=== PATIENT | male | born 1970 ===

== ENCOUNTER 2020-05-26 11:24 | Inpatient (IN) | payer SELFPAY ==
[~2020-05-26] VITALS: Ht 185.4 cm; Wt 79.3 kg
--- NOTE | 2020-05-26 12:14 | PHYS DOC ---
Past History Past Medical History: No Pertinent History Past Surgical History: No Surgical History Alcohol Use: None General Adult EDM: Chief Complaint: ALTERED MENTAL STATUS HPI: HPI: Patient is a 49-year-old male brought in by EMS after he was found with altered mental status during welfare check. It is unclear of who called for the welfare check but it is thinks it may have been family. Per EMS report they state that the patient's girlfriend 2 weeks ago because the address campus another EMS call. Details of her are unclear as EMS were working today were not there. Patient is completely disoriented able to state his birthday and the year, thinks he is in [place]. Patient states that his girlfriend is still there taking care of him. He has no complaints of pain or recent illness. Patient is unable to to give any history. No known baseline or previous records with patient. Review of Systems: Review of Systems: Unable to assess due to mental status Allergies: Allergies: Allergies Coded Allergies Type Severity Reaction Last Updated Verified No Known Drug Allergies 05/26/20 No Physical Exam: PE: Constitutional: Well developed, well nourished, no acute distress, disoriented, smells [] HENT: Normocephalic, atraumatic, bilateral external ears normal, oropharynx moist, no oral exudates, nose normal. [] Eyes: PERRLA, conjunctiva normal, no discharge. [] Neck: Normal range of motion, no tenderness, supple, no stridor. [] Cardiovascular:Heart rate regular rhythm, no murmur [] Lungs & Thorax: Bilateral breath sounds clear to auscultation [] Abdomen: Bowel sounds normal, soft, no tenderness, no masses, no pulsatile masses. [] Skin: Warm, dry, no erythema, no rash. [] Extremities: No tenderness, no cyanosis, no clubbing, ROM intact, no edema. [] Neurologic: Alert and oriented X 1, NIH 2 for ataxia on [id number], mild tremor noted feet Psychologic: Normal affect, denies suicidal ideation or hallucinations. Current Patient Data: Labs: Laboratory Tests Test 05/26/20 11:39 Glucose (Fingerstick) 159 mg/dL (70-99) H Vital Signs: Vital Signs Date Time Temp Pulse Resp B/P (MAP) Pulse Ox O2 Delivery O2 Flow Rate FiO2 05/26/20 11:32 97.5 105 16 124/87 (99) 99 Room Air EKG: EKG: [] Radiology/Procedures: Radiology/Procedures: Examination: XR CHEST 1V History: ams / Comparison/Correlation: None Findings: Frontal view chest was obtained by portable technique with the patient upright. Heart size and pulmonary vasculature are normal. No infiltrate or effusion. Minimal discoid atelectasis may be present at the left lung base. No infiltrate. Impression: No active disease. PROCEDURE: CT HEAD WO CONTRAST Examination: CT HEAD/BRAIN WO History: Reason: altered mental status Comparison/Correlation: None Findings: Axial images of the head were obtained without contrast. Atrophy is present. No intracranial hemorrhage, midline shift, or mass effect. Mild ventriculomegaly which presumably represents volume loss is present. Cavernous carotid calcification is present. Bony structures are unremarkable. Partial opacification of the right maxillary sinus is present. Lack of development of frontal sinus is incidentally noted. Impression: No acute process. PROCEDURE: CT ABD PELV W/ IV CONTRST ONLY Examination: CT ABDOMEN+PELVIS W History: sepsis, unknown source Comparison/Correlation: None Findings: Axial images of the abdomen and pelvis were obtained following IV contrast. Sagittal and coronal reformatted images provided. Minimal basilar atelectasis is present. Liver, spleen, pancreas, adrenal glands, and kidneys are normal. Appendix is normal. Large quantity of stool is present in the colon. Mild diverticulosis is present. No extraluminal gas. No extraluminal gas. No bowel obstruction. Multiple nonenlarged mesenteric lymph nodes are present. Borderline size portacaval lymph node on axial image 34 is present. Mild L4-5 disc space narrowing. Central disc protrusion L5-S1 noted. No acute bony process. Impression: Borderline sized portacaval lymph node. Nonenlarged mesenteric lymph nodes present. Correlate clinically in determining interval follow-up. [] Heart Score: Risk Factors: Risk Factors: DM, Current or recent (<one month) smoker, HTN, HLP, family hist ory of CAD, obesity. Risk Scores: Score 0 - 3: 2.5% MACE over next 6 weeks - Discharge Home Score 4 - 6: 20.3% MACE over next 6 weeks - Admit for Clinical Observation Score 7 - 10: 72.7% MACE over next 6 weeks - Early Invasive Strategies Course & Med Decision Making: Course & Med Decision Making Pertinent Labs and Imaging studies reviewed. (See chart for details) Patient's mother phoned the emergency department after being contacted by PD that her son was brought to the hospital. She is unsure of who called for a welfare check but says he has been heard from for a few days to her knowledge. Mother states that patient has been acting erratically since his girlfriend 2 weeks ago when he had to do CPR. States he has a history of diabetes and neuropathy [facility] [] Michael Disclaimer: Michael Disclaimer: This electronic medical record was generated, in whole or in part, using a voice recognition dictation system. Departure Departure: Impression: Primary Impression: Acute psychosis Additional Impression: Dehydration Disposition: 09 ADMITTED INPT THIS HOSP Admitting Physician: Angelic Gardner Condition: STABLE Referrals: PCP,UNKNOWN (PCP) CALDERON US MD May 26, 2020 12:14
[2020-05-26 12:22] LABS: BASO % 0 % (0-3); EOS % 0 % (0-3); HEMATOCRIT 25.9 % (39.0-53.0); HEMOGLOBIN 8.6 g/dL (13.0-17.5); LYMPH # 0.9 x10^3/uL (1.0-4.8); LYMPH % 12 % (24-48); MEAN CORPUSCULAR HEMOGLOBIN 36 pg (25-35); MEAN CORPUSCULAR HGB CONC 33 g/dL (31-37); MEAN CORPUSCULAR VOLUME 109 fL (79-100); MONO # 0.2 x10^3/uL (0.0-1.1); MONO % 2 % (0-9); NEUT # 6.5 x10^3uL (1.8-7.7); NEUT % 85 % (31-73); PLATELET COUNT 191 x10^3/uL (140-400); RED BLOOD COUNT 2.37 x10^6/uL (4.30-5.70); RED CELL DISTRIBUTION WIDTH 15.4 % (11.5-14.5); WHITE BLOOD COUNT 7.6 x10^3/uL (4.0-11.0)
--- NOTE | 2020-05-26 12:26 | RAD ---
Examination: CT HEAD/BRAIN WO History: Reason: altered mental status Comparison/Correlation: None Findings: Axial images of the head were obtained without contrast. Atrophy is present. No intracrania l hemorrhage, midline shift, or mass effect. Mild ventriculomegaly which presumably represents volume loss is present. Cavernous carotid calcification is present. Bony structures are unremarkable. Parti al opacification of the right maxillary sinus is present. Lack of development of frontal sinus is inc identally noted. Impression: No acute process. PQRS Compliance Statement: One or more of the following individualized dose reduction techniques were utilized for this examinat ion: 1. Automated exposure control 2. Adjustment of the mA and/or kV according to patient size 3. Use of iterative reconstruction technique Electronically signed by: Roberto Winkler MD (05/26/2020 12:24 PM) [id number]
--- NOTE | 2020-05-26 12:27 | RAD ---
Examination: XR CHEST 1V History: ams / Comparison/Correlation: None Findings: Frontal view chest was obtained by portable technique with the patient upright. Heart size and pulmonary vasculature are normal. No infiltrate or effusion. Minimal discoid atelectasis may be p resent at the left lung base. No infiltrate. Impression: No active disease. Electronically signed by: Roberto Winkler MD (05/26/2020 12:25 PM) [id number]
[2020-05-26 12:33] LABS: SALIC < 2.8 mg/dL (2.8-20.0)
[2020-05-26 12:34] LABS: ACETAMIN < 2.0 mcg/mL (10-30); CALCIUM 9.5 mg/dL (8.5-10.1); CREATININE 1.4 mg/dL (0.7-1.3); ETHANOL < 10 mg/dL (0-10); GFR 53.4; POTASSIUM 3.4 mmol/L (3.5-5.1)
[2020-05-26 12:44] LABS: ALBUMIN 3.2 g/dL (3.4-5.0); ALBUMIN/GLOBULIN RATIO 0.8 (1.0-1.7); TOTAL BILIRUBIN 0.8 mg/dL (0.2-1.0); TOTAL PROTEIN 7.1 g/dL (6.4-8.2)
[2020-05-26 12:58] LABS: BARBITURATES NEG (NEG); BENZODIAZEPINES NEG (NEG); CANNABINOIDS NEG (NEG); COCAINE NEG (NEG); METHADONE NEG (NEG); OPIATES NEG (NEG); PHENCYCLIDINE NEG (NEG)
[2020-05-26 13:00] LABS: AMPHETAMINE/METHAMPHETAMINE NEG (NEG)
[2020-05-26 13:03] LABS: BACTERIA,URINE FEW /HPF (0-FEW); BILIRUBIN,URINE MOD (NEG); CLARITY,URINE HAZY; COLOR,URINE AMBER; GLUCOSE,URINE NEG (NEG); NITRITE,URINE POS (NEG); RBC,URINE OCC /HPF (0-2); SQUAMOUS EPITHELIAL CELL,UR OCC /LPF
[2020-05-26 13:04] LABS: HYALINE CASTS, URINE OCC /HPF
[2020-05-26] MEDS ORDERED: IV NORMAL SALINE 1,000ML 1,000 ML IV ONE ×2 (13:15→15:15)
[2020-05-26] MEDS ORDERED: IOHEXOL 300 MG/ML 75 ML VIAL. IV ONE (14:00)
[2020-05-26] MEDS ORDERED: PIPERACILLIN/TAZOBACTAM 3.375 GM in IV NORMAL SALINE 50ML 50 ML IV ONE (14:30)
[2020-05-26] MEDS ORDERED: PIPERACILLIN/TAZOBACTAM 3.375 GM VIAL IV ONE (14:56)
[2020-05-26] MEDS ORDERED: IV NORMAL SALINE 50ML 50 ML ONE (14:56)
--- NOTE | 2020-05-26 15:13 | RAD ---
Examination: CT ABDOMEN+PELVIS W History: sepsis, unknown source Comparison/Correlation: None Findings: Axial images of the abdomen and pelvis were obtained following IV contrast. Sagittal and co aniyah reformatted images provided. Minimal basilar atelectasis is present. Liver, spleen, pancreas, adrenal glands, and kidneys are normal. Appendix is normal. Large quantity of stool is present in the colon. Mild diverticulosis is present. No extraluminal gas. No extraluminal gas. No bowel obstruction. Multiple nonenlarged mesenteric lymph nodes are present. Borderline size portacaval lymph node on axial image 34 is present. Mild L4-5 disc space narrowing. Central disc protrusion L5-S1 noted. No acute bony process. Impression: Borderline sized portacaval lymph node. Nonenlarged mesenteric lymph nodes present. Correlate clinica lly in determining interval follow-up. PQRS Compliance Statement: One or more of the following individualized dose reduction techniques were utilized for this examinat ion: 1. Automated exposure control 2. Adjustment of the mA and/or kV according to patient size 3. Use of iterative reconstruction technique Electronically signed by: Roberto Winkler MD (05/26/2020 3:11 PM) [id number]
[2020-05-26 17:35] VITALS: BP 124/89
[2020-05-26 19:47] VITALS: BP 113/77
[2020-05-26 22:37] VITALS: BP 101/68
[2020-05-27 04:17] VITALS: BP 122/75
--- NOTE | 2020-05-27 05:37 | RAD ---
PQRS Compliance Statement: One or more of the following individualized dose reduction techniques were utilized for this examinat ion: 1. Automated exposure control 2. Adjustment of the mA and/or kV according to patient size 3. Use of iterative reconstruction technique CT head without contrast 05/27/2020 4:39 AM INDICATION: Altered mental status, seizure-like activity. COMPARISON: CT head 05/26/2020 TECHNIQUE: Multiple axial CT images of the head were obtained from skull base through the vertex with out intravenous contrast. FINDINGS: Head: Ventricles, sulci and basal cisterns are prominent compatible with mild generalized cerebral line los s. There is no hydrocephalus. Olvera-white matter differentiation is normal. There is no acute intracra nial hemorrhage. There is no mass, mass effect or midline shift. Posterior fossa is normal in appeara nce. Visualized portions of the orbits are normal.. Moderate mucosal thickening of the right maxillary sin us. Mastoid air cells are well aerated. Scalp and calvaria are normal. IMPRESSION: No acute intracranial hemorrhage. Mild generalized cerebral volume loss. Electronically signed by: Florinda Dillon MD (05/27/2020 5:34 AM) [facility]
[2020-05-27 05:53] VITALS: BP 120/76
--- NOTE | 2020-05-27 06:14 | EKG ---
[address] [address] Test Date: 2020-05-27 Test Time: 06:03:32 Pat Name: MILENA NINO Department: Room: 111 A Gender: M [employer] Technology Manager: : 1970 Requested By: EDUARDO HARRISON Order Number: [id number] Reading MD: Measurements Intervals [place] Rate: 104 P: -49 ID: [id number] QRS: 166 QRSD: 88 T: 2 QT: 366 QTc: 488 Interpretive Statements SINUS TACHYCARDIA ABNORMAL RIGHT AXIS DEVIATION QRS(T) CONTOUR ABNORMALITY CONSISTENT WITH HIGH LATERAL INFARCT AGE UNDETERMINED CONSIDER INFERIOR INFARCT ST & T ABNORMALITY, CONSIDER LATERAL ISCHEMIA OR LEFT VENTRICULAR STRAIN T ABNORMALITY IN ANTERIOR LEADS ABNORMAL ECG RI6.01 No previous ECG available for comparison
[2020-05-27 07:00] LABS: BASO % 0 % (0-3); EOS % 0 % (0-3); HEMOGLOBIN 7.1 g/dL (13.0-17.5); LYMPH # 0.7 x10^3/uL (1.0-4.8); LYMPH % 14 % (24-48); MEAN CORPUSCULAR HEMOGLOBIN 37 pg (25-35); MEAN CORPUSCULAR HGB CONC 34 g/dL (31-37); MEAN CORPUSCULAR VOLUME 110 fL (79-100); MONO # 0.2 x10^3/uL (0.0-1.1); MONO % 3 % (0-9); NEUT # 4.3 x10^3uL (1.8-7.7); NEUT % 83 % (31-73); PLATELET COUNT 145 x10^3/uL (140-400); RED BLOOD COUNT 1.91 x10^6/uL (4.30-5.70); RED CELL DISTRIBUTION WIDTH 15.8 % (11.5-14.5); WHITE BLOOD COUNT 5.2 x10^3/uL (4.0-11.0)
[2020-05-27 07:08] LABS: ALBUMIN 2.6 g/dL (3.4-5.0); ALBUMIN/GLOBULIN RATIO 0.7 (1.0-1.7); CALCIUM 8.6 mg/dL (8.5-10.1); CREATININE 1.2 mg/dL (0.7-1.3); GFR 63.8; MAGNESIUM 2.3 mg/dL (1.8-2.4); TOTAL BILIRUBIN 0.5 mg/dL (0.2-1.0); TOTAL PROTEIN 6.3 g/dL (6.4-8.2)
[2020-05-27 07:11] LABS: POTASSIUM 2.8 mmol/L (3.5-5.1)
[2020-05-27] MEDS: POTASSIUM CL 40MEQ IN 0.9%NACL 1,000 ML IV SCH ×2 (07:30→15:30)
[2020-05-27] MEDS ORDERED: ALBU2.5V8 IH (08:56)
[2020-05-27] MEDS ORDERED: POTA20TA4 PO (08:56)
[2020-05-27] MEDS ORDERED: GABA600T7 PO (08:56)
[2020-05-27] MEDS ORDERED: DULO30CA2 PO (08:56)
[2020-05-27] MEDS ORDERED: LIDO5JEL8 TP (08:56)
[2020-05-27] MEDS ORDERED: FOLI20CA PO (08:56)
[2020-05-27] MEDS ORDERED: CAPS60CR2 TP (08:56)
[2020-05-27] MEDS ORDERED: METF500T16 PO (08:56)
[2020-05-27] MEDS ORDERED: BUDE10.2 IH (08:56)
[2020-05-27] MEDS ORDERED: SILD50TA PO (08:56)
[2020-05-27] MEDS ORDERED: TAMS0.4C97 PO (08:56)
[2020-05-27] MEDS ORDERED: CRESTOR5 MG PO (08:56)
[2020-05-27] MEDS ORDERED: ASPI-630 PO (08:56)
[2020-05-27] MEDS ORDERED: TIOT18CA IH (08:56)
[2020-05-27] MEDS ORDERED: CYAN100031 PO (08:56)
[2020-05-27] MEDS ORDERED: LOSA25TA11 PO (08:56)
[2020-05-27] MEDS ORDERED: THIA100T57 PO (08:56)
[2020-05-27 10:50] VITALS: BP 115/74
[2020-05-27] MEDS ORDERED: NON FORMULARY ITEM (Sildenafil Citrate (Viagra) 1 TAB) PO PRN (13:45)
[2020-05-27] MEDS ORDERED: CAPSAICIN 0.025% TOPICAL CREAM 60GM TUBE. TP PRN (13:45)
[2020-05-27] MEDS ORDERED: ALBUTEROL SULFATE 2.5 MG/3 ML NEBU. IH PRN (13:45)
--- NOTE | 2020-05-27 14:39 | HP ---
ADMIT DATE: 05/26/2020 HISTORY OF PRESENT ILLNESS: The patient is a 49-year-old male patient who came to the Emergency Room by EMS after he was found with altered mental status during welfare check. It is unclear of who called for the welfare check, but might have been a family member. Per EMS report, they stated that the patient's girlfriend 2 weeks ago ____ another EMS called, detailed her are unclear as EMS working were not there. The patient is completely disoriented. On arrival to the Emergency Room, was able to state his birthday and the year, thinks he is in [place]. He stated that his girlfriend is still there taking care of him. He has no complaints of pain or recent illness. He is unable to give any history on arrival. He was extensively investigated in the Emergency Room with lab work as well as imaging studies. His blood count showed that he has macrocytic anemia. His blood gases showed that he was alkalotic and his chemistry showed that he has hyponatremia, hypokalemia, impaired kidney function, hyperglycemia, lactic acidosis and elevated liver enzymes; however, his ammonia level was normal. His chest x-ray was unremarkable and CT scan of the head showed no acute process. The patient was admitted and was started on IV fluid and was given also IV antibiotic in the form of Zosyn and was admitted for further evaluation and treatment. We did get some information from the [facility] as he is a and follows at the [facility] and apparently moved here from [place] for alcohol rehabilitation, although he is not really sure as to the timing on arrival here. PAST MEDICAL HISTORY: Significant for Crohn's disease, type 2 diabetes mellitus, hypertension, hyperlipidemia, COPD, benign prostatic hypertrophy, and chronic alcoholism. PAST SURGICAL HISTORY: Significant for multiple EGDs and colonoscopies. ALLERGIES: HE IS ALLERGIC TO AMITRIPTYLINE, DIVALPROEX SODIUM, LISINOPRIL AND TOPIRAMATE. MEDICATIONS: He is on tiotropium bromide 1 capsule daily, albuterol sulfate 2 puffs every 4-6 hours, tamsulosin for Flomax 0.4 mg at bedtime, Crestor 2.5 mg weekly, sildenafil for Viagra 50 mg as needed. He is on losartan potassium 25 mg once a day, aspirin 81 mg once a day, gabapentin 400 mg 3 times a day, duloxetine 90 mg daily. He is on potassium chloride 20 mEq daily. He is on Symbicort 160/4.5 mcg inhaler 2 puffs twice a day, Lidoderm gel applied topically 4 times a day for nerve pain. He is on metformin 500 mg twice a day, capsaicin 60 mg cream applied topically 4 times a day, vitamin B12 1000 mcg tablet once a day, folic acid 1 mg once a day, and thiamine 100 mg once a day. FAMILY HISTORY: He has 3 sisters and 1 brother older and healthy. His father at the age of 74 as a complication of surgery for his carotid artery according to him, his mother is still alive at age of 89 and apparently healthy. SOCIAL HISTORY: He is twice, twice, used to live with his girlfriend who recently. He has no children. He quit smoking years ago. He drinks wine 3 times per week according to him. He does not drink any whiskey or vodka. He was in [place] in 1990. He was discharged because he was diagnosed with Crohn's disease according to him. REVIEW OF SYSTEMS: The patient denied any blurring of vision, cataract, glaucoma or macular degeneration. Denied any other complaint. PHYSICAL EXAMINATION: GENERAL: On arrival to the Emergency Room, he looked well and was clearly in no apparent respiratory distress. No pallor, jaundice, cyanosis or thyromegaly. No jugular venous distention. No limb edema. VITAL SIGNS: His heart rate was 105, blood pressure was 124/87, temperature was 97.5, respiratory rate was 16, and oxygen saturation was 99%. HEAD, EYES, EARS, NOSE AND THROAT: Showed normocephalic, atraumatic. NECK: Supple. HEART: Showed normal first and second heart sounds with no gallop, rub or murmur. CHEST: Clear to auscultation. No crepitation or rhonchi. ABDOMEN: Distended, soft, nontender. NEUROLOGICAL: He is awake, alert, but at times confused. In fact he was very confused on admission. All his cranial nerves are intact. EXTREMITIES: He moves upper extremities to much good extent than lower extremities. He is mostly wheelchair bound according to him. LABORATORY DATA: His lab work on arrival showed a serum sodium of 134, potassium 3.4, chloride 89, bicarbonate 28, anion gap of 17, BUN 49, creatinine 1.4, estimated GFR was 53 mL per minute. His glucose is 157. Lactic acid was 3.4, calcium was 9.5. Total bilirubin is normal. AST, ALT, alkaline phosphatase are elevated. Ammonia was normal, less than 10 mL. His CK was 102, total protein 7.1, albumin 3.2. His white cell count was 7600, hemoglobin 8.6, hematocrit 25.9, MCV 109 and platelet count of 191,000. His urinalysis showed the urine was morenita, hazy with a pH of 5, specific gravity of 1.025. The urine was negative for protein, glucose, trace of ketones, negative for blood, positive for nitrite and there was moderate amount of bilirubin, negative for leukocyte esterase with 1 occasional rbc's, 1-4 wbc's and very few bacteria. Urine toxic screen was essentially negative. IMAGING DATA: His chest x-ray showed the heart size and pulmonary vasculature are normal, no infiltrate or effusion, minimal discoid atelectasis may be present in the left lung base, no infiltrate. CT scan of the head showed that atrophy is present. No intracranial hemorrhage, midline shift or mass effect, mild ventriculomegaly, which presumably represents volume loss is present. Cavernous carotid calcification is present. Bony structures are unremarkable. Partial opacification of the right maxillary sinus is present, likely development of frontal sinus incidentally noted. ASSESSMENT AND PLAN: The patient was admitted as an inpatient to continue with rehydration as he is clearly dehydrated. She has also altered mental status, the cause of which is not really very clear. His mother apparently found the Emergency Department after being contacted by the police department that her son was brought to the hospital. She is unsure who called for a welfare checkup, but states she has not heard from him for a few days to her knowledge. Mother states that the patient has been acting erratically since his girlfriend 2 weeks ago when he had to do CPR. She states that he has history of diabetes and neuropathy and [facility] PLAN: To continue with IV fluid, continue with IV antibiotic as he has lactic acidosis, although he is transpired, but he is on metformin as a cause of his lactic acidosis. EDUARDO HARRISON MD DR: RUPAL/chance JOB#: [id number] / [id number]
[2020-05-27] MEDS ORDERED: LIDOCAINE 2% TOPICAL JELLY 30GM TUBE. TP PRN (15:00)
[2020-05-27 15:25] VITALS: BP 127/92
[2020-05-27] MEDS ORDERED: ALBUTEROL SULFATE 2.5 MG/3 ML NEBU. NEB PRN (15:30)
[2020-05-27] MEDS: IPRATRPIUM/ALBUTEROL 0.5/2.5MG 3 ML NEBU. NEB SCH ×2 (15:36→20:22)
[2020-05-27] MEDS: BUDESONIDE 0.5 MG/2 ML NEBU NEB SCH (20:22)
[2020-05-27 20:32] VITALS: BP 130/87
[2020-05-27] MEDS ORDERED: NON FORMULARY ITEM (Budesonide/Formoterol Fumarate (Symbicort 160-4.5 Mcg Inhaler) 2 PUFF) IH SCH (21:00)
[2020-05-27] MEDS: GABAPENTIN 400 MG CAPSULE. PO SCH (21:08)
[2020-05-28] VITALS (11 sets, daily range): BP systolic 92–133; BP diastolic 65–88
--- NOTE | 2020-05-28 00:04 | PN ---
DATE: 05/27/2020 SUBJECTIVE: The patient was admitted yesterday with acute psychosis and marked dehydration. He was extremely lethargic and confused. However, when I saw him today this afternoon, he was resting slightly propped up in bed, in no apparent distress. He is awake, alert, responding mostly appropriately. He was actually hungry and has managed to eat. However, he continued to complain of weakness and inability to walk. The nursing staff apparently were concerned that he might have an episode of seizure and we did repeat CT scan of the head, which again showed no acute intracranial hemorrhage, mild generalized cerebral volume loss. PHYSICAL EXAMINATION: GENERAL: When I examined him this afternoon, he looked well and was clearly in no apparent respiratory distress. No pallor, jaundice, cyanosis or thyromegaly. No jugular venous distention or limb edema. VITAL SIGNS: Her heart rate was 108, blood pressure was 115/74, temperature was 96.1, respiratory rate was 20, and oxygen saturation was 98% on room air. HEAD, EYES, EARS, NOSE AND THROAT: Showed normocephalic, atraumatic. NECK: Supple. HEART: Showed normal first and second heart sounds. No gallop or murmur. CHEST: Clear to auscultation. No crepitation or rhonchi. ABDOMEN: Distended, soft, nontender. NEUROLOGIC: He is definitely more awake, oriented, although he has episodes of confusion. All his cranial nerves are intact. He moves upper extremities as much to get extended extremities. According to him, he is mostly chair bound, unable to walk because of severe diabetic peripheral neuropathy. His intake was 2400, output was 450. LABORATORY DATA: His lab work this morning showed his white cell count is 5200, hemoglobin 7.1, hematocrit 21, MCV 110, platelet count of 145,000 with normal manual differential. His chemistry this morning showed a serum sodium of 138, potassium 2.8, chloride 98, bicarbonate 28, anion gap of 12, BUN 46, creatinine 1.2, estimated GFR was 64 mL per minute. His glucose of 141, calcium was 8.6, magnesium 2.3. Total bilirubin is normal. AST, ALT, alkaline phosphatase are elevated. His total protein was 6.3, albumin was 2.6. ASSESSMENT: In summary, this is a 49-year-old male patient who was admitted with altered mental status. He has acute kidney injury, dehydration, hypokalemia, hyponatremia, lactic acidosis, acute kidney injury and transaminitis. He has multitude of other medical problems including Crohn's disease, type 2 diabetes mellitus, hypertension, hyperlipidemia, COPD, benign prostatic hypertrophy. He had had a CT scan of the abdomen and pelvis, which basically showed the patient has minimal basilar atelectasis present. Liver, spleen, pancreas, adrenal glands and kidneys are normal. Appendix is normal. Large quantity of stool is present in the colon, mild diverticulosis present. No extraluminal gas or bowel obstruction. Multiple nonenlarged mesenteric lymph nodes are present. Borderline sized portacaval lymph node on axial image of 34 present. Has also mild L4-L5 disk space narrowing, central disk protrusion at L5-S1 noted. No acute bony process, borderline sized portacaval lymph nodes, nonenlarged mesenteric lymph nodes present. Today's labs showed that he has hypokalemia. His sodium has improved and his BUN and creatinine are trending down. PLAN: My plan is to continue with IV fluid. We will stop the metformin as probably the cause of type B lactic acidosis. I have consulted Dr. Robertson and I am not sure whether this finding on the CT scan of the abdomen is relevant to what seemed to be functional paraplegia, but he seemed to have severe diabetic peripheral neuropathy as he is on duloxetine, gabapentin as well as capsaicin. I would also consult the physical and occupational therapist. EDUARDO HARRISON MD DR: RUPAL/chance JOB#: [id number] / [id number]
[2020-05-28] MEDS: POTASSIUM CL 40MEQ IN 0.9%NACL 1,000 ML IV SCH ×3 (01:11→15:46)
--- NOTE | 2020-05-28 01:35 | CONS ---
DATE OF CONSULTATION: 05/27/2020 NEUROLOGY CONSULTATION REFERRING PHYSICIAN: Dr. Gardner. REASON FOR CONSULTATION: Acute mental status changes. HISTORY OF PRESENT ILLNESS: This is a 49-year-old right-handed male who was admitted through Emergency Room after he was found confused and disoriented. EMS was activated by possible family member. On arrival, the patient was able to mention his name; however, he was unable to provide any further information. Apparently, the patient's girlfriend 2 weeks ago of unknown reason and he did CPR on her; however, the patient was admitted for further evaluation of his mental status. Initial head CT scan was performed and revealed no significant intracranial process. During the interview this morning, the patient was not able to provide any information; however, occasionally he make some sentences and describes his previous medical problems as being diabetes and has had peripheral neuropathy in the lower extremities. He complains of intermittent lower back pain, numbness and paresthesia of the lower extremities. The patient does not know anything about his girlfriend. He was initially transferred from [place] to [facility] for alcohol rehabilitation. The patient denies any recent head injuries or fall. PAST MEDICAL HISTORY: Significant for diabetes mellitus type 2, hypertension, Crohn's disease, alcoholism, hyperlipidemia, COPD, and benign prostate hypertrophy. PAST SURGICAL HISTORY: The patient did have colonoscopy and EGD, but the result is not available at this time. FAMILY HISTORY: His father at age of 74 from carotid artery surgery complications. His mother is alive at the age of 89. SOCIAL HISTORY: The patient is . He has no children. He drinks wine 3 times weekly. He denies smoking. CURRENT MEDICATIONS: The list is not available at this time. ALLERGIES: AMITRIPTYLINE, DEPAKOTE, LISINOPRIL AND TOPIRAMATE. REVIEW OF SYSTEMS: A 14-point review of system was performed as mentioned above in history of present illness. Otherwise, the patient denies chest pain, shortness of breath or palpitation. PHYSICAL EXAMINATION: GENERAL: Well-developed, well-nourished male, not in acute distress. He weighs 79.3 kilos. VITAL SIGNS: Blood pressure 120/76, respiratory rate 20, pulse is 105, temperature 97.6, oxygen saturation 92% on room air. HEENT: Normocephalic, atraumatic, otherwise unremarkable. NECK: Supple. Negative for carotid bruit, lymphadenopathy or thyromegaly. LUNGS: Clear to A and P. CARDIOVASCULAR: Regular rate and rhythm. Normal S1, S2. There is no S3, S4 or murmurs. ABDOMEN: Soft. Bowel sounds positive. EXTREMITIES: Negative for cyanosis, clubbing or edema. NEUROLOGICAL: MENTAL STATUS: The patient is awake, but he is disoriented to time, place and person. Speech is coherent, sometimes he follows 1-step commands. There is no language dysfunction. Memory, judgment, and abstract thinking is poor. The patient denies hallucination or delusion. CRANIAL NERVES: Visual randhawa are full. The pupils are reactive to light and accommodation. The extraocular movements are intact. There is no nystagmus. There is no facial motor or sensory deficits. Hearing is intact bilaterally. The palate is elevated symmetrically. Sternocleidomastoid muscles are powerful bilaterally. The patient shrugs his shoulders symmetrically, protrudes his tongue in the midline without fasciculation or atrophy. MOTOR EXAMINATION: No focal muscle bulk wasting. The tone is normal. The strength is 5/5 throughout. SENSORY EXAMINATION: Revealed diminished pinprick and light touch senses in patchy distributions in both distal lower extremities. Deep tendon reflexes were asymmetric and hypoactive with absent Achilles responses. GAIT: Not tested. LABORATORY DATA: CBC revealed white blood cells of 5200, hemoglobin 7.1, hematocrit 21, platelet count 145, MCV is high at 110. MCH is high at 37. Chemistry: Sodium 138, potassium 2.8, chloride 98, CO2 of 28, BUN 46, creatinine 1.2, glucose 141. Lactic acid is 2, calcium 8.6. Liver enzymes are elevated. Troponin level is normal. Urinalysis is positive for urine nitrite with white blood cells of 1-4. Urine drug screen is negative. DIAGNOSTIC DATA: A head CT scan performed on 05/26/2020 revealed no acute intracranial process. Abdominal CT revealed borderline size portal caval lymph node, otherwise unremarkable and chest x-ray revealed no acute disease. IMPRESSION: 1. Acute encephalopathy, rule out metabolic versus infectious type of uncertain etiology. Recent extreme stress and his girlfriend's may have contributed to the current symptoms. 2. Dehydration with impaired renal functions. 3. Chronic alcoholism with elevated liver enzymes. 4. Multiple medical problems includes diabetes mellitus, hypertension, hyperlipidemia, chronic obstructive pulmonary disease. RECOMMENDATIONS: 1. We will obtain medical record from [facility] here in [place]. 2. Continue with current management initiated by Dr. Gardner. M Jason MCFARLAND MD DR: TONO/chance JOB#: [id number] / [id number]
[2020-05-28] MEDS: BUDESONIDE 0.5 MG/2 ML NEBU NEB SCH ×3 (05:43→20:29)
[2020-05-28] MEDS: IPRATRPIUM/ALBUTEROL 0.5/2.5MG 3 ML NEBU. NEB SCH ×5 (05:43→20:29)
[2020-05-28 06:42] LABS: HEMATOCRIT 20.9 % (39.0-53.0); RED BLOOD COUNT 1.87 x10^6/uL (4.30-5.70); RED CELL DISTRIBUTION WIDTH 15.8 % (11.5-14.5)
[2020-05-28 06:52] LABS: HEMOGLOBIN 6.9 g/dL (13.0-17.5)
[2020-05-28 06:58] LABS: ALBUMIN 2.5 g/dL (3.4-5.0); ALBUMIN/GLOBULIN RATIO 0.7 (1.0-1.7); CALCIUM 8.5 mg/dL (8.5-10.1); CREATININE 0.8 mg/dL (0.7-1.3); GFR 101.9; TOTAL BILIRUBIN 0.5 mg/dL (0.2-1.0); TOTAL PROTEIN 6.3 g/dL (6.4-8.2)
[2020-05-28] MEDS: GABAPENTIN 400 MG CAPSULE. PO SCH ×4 (08:24→21:00)
[2020-05-28] MEDS ORDERED: FOLIC ACID 1 MG TABLET PO SCH (09:00)
[2020-05-28] MEDS ORDERED: ASPIRIN CHEWABLE 81 MG TABLET. PO SCH (09:00)
[2020-05-28] MEDS ORDERED: CYANOCOBALAMIN (VITAMIN B-12) 1,000 MCG TABLET. PO SCH (09:00)
[2020-05-28] MEDS ORDERED: POTASSIUM CHLORIDE 20 MEQ TABLET.ER. PO SCH (09:00)
[2020-05-28] MEDS ORDERED: THIAMINE 100 MG TABLET. PO SCH (09:00)
[2020-05-28] MEDS ORDERED: NON FORMULARY ITEM (Tiotropium Bromide (Spiriva) 1 CAP) IH SCH (09:00)
[2020-05-28] MEDS ORDERED: DULoxetine HCL 30 MG CAPSULE.DR PO SCH (09:00)
[2020-05-28] MEDS ORDERED: TAMSULOSIN 0.4 MG CAP.ER.24H. PO SCH (09:00)
--- NOTE | 2020-05-28 11:31 | PN ---
DATE: 05/28/2020 SUBJECTIVE: The patient denies any new medical or neurological complaints. He continues to have numbness and paresthesia of the distal lower extremities. OBJECTIVE: GENERAL: Well-developed, well-nourished male, not in acute distress. VITAL SIGNS: Blood pressure is 133/80, respiratory rate 18, pulse is 96 regular, oxygen saturation 96%, and temperature 97.8. HEENT: Normocephalic, atraumatic, otherwise unremarkable. NECK: Supple. Negative for carotid bruit, lymphadenopathy or thyromegaly. LUNGS: Clear to A and P. CARDIOVASCULAR: Regular rate and rhythm, normal S1, S2. There is no S3, S4 or murmur. ABDOMEN: Soft. Bowel sounds positive. EXTREMITIES: Negative for cyanosis, clubbing or pitting edema. NEUROLOGICAL EXAM: Mental Status: The patient is alert and oriented to time and person. The speech is more fluent. There is no language dysfunction. Memory, judgment, and abstracting thinking are fair. The patient denies hallucination or delusion. Cranial nerves are intact. No focal motor deficits. The strength is 5/5 throughout. Sensory examination revealed diminished pinprick and light touch senses in patchy distributions in distal lower extremities. Deep tendon reflexes were symmetric and hypoactive with absent Achilles responses. Gait not tested. The patient did remember what happened 2 weeks ago when his girlfriend was found on the floor. He remembers he did CPR of the [id number] breathing. He does not know what the cause of her . LABORATORY DATA: CBC revealed white blood cells of 6000, hemoglobin 6.9 thousand, hematocrit 20.9, MCV is high at 112 and MCH is high at 37. The platelet count is 133,000. Chemistry revealed sodium 143, potassium 4, chloride 106, CO2 of 28, BUN 27, creatinine 0.8, glucose is 129, calcium 8.5. Liver enzymes are elevated. Urinalysis is positive for urine nitrite with normal white blood cells and few bacteria. IMPRESSION: 1. Acute encephalopathy, probably due to metabolic versus infectious process; however, the patient has been under extreme stress in the last 2 weeks after his girlfriend's . 2. Multiple medical problems include severe anemia with hemoglobin is 6.9. The patient has microcytic hyperchromic anemia type, probably due to alcoholism; however, he is on multivitamins and vitamin B12. History of chronic lower back pain secondary to degenerative disk disease and peripheral neuropathy, probably secondary to diabetes and chronic alcoholism, dehydration with impaired renal functions, hyperlipidemia, and obstructive sleep apnea. RECOMMENDATION: Continue with current management initiated by Dr. Gardner. To get his medical record from [facility] here in [place] and find out about the previous study of EGD and colonoscopy. Physical therapy evaluation and increase activities as tolerated. M Jason MCFARLAND MD DR: TONO/chance JOB#: [id number] / [id number]
[2020-05-28 13:33] LABS: HEMATOCRIT 27.7 % (39.0-53.0); HEMOGLOBIN 9.1 g/dL (13.0-17.5); RED BLOOD COUNT 2.62 x10^6/uL (4.30-5.70); RED CELL DISTRIBUTION WIDTH 20.7 % (11.5-14.5); WHITE BLOOD COUNT 5.1 x10^3/uL (4.0-11.0)
[2020-05-28] MEDS ORDERED: POLYETHYLENE GLYCOL 3350 17 GM PACKET. PO ONE (13:45)
[2020-05-28] MEDS ORDERED: PANTOPRAZOLE 40 MG TABLET. PO SCH (13:45)
[2020-05-28] MEDS ORDERED: MAGNESIUM CITRATE 296 ML SOLUTION. PO ONE (13:45)
[2020-05-28] MEDS ORDERED: PANTOPRAZOLE IV 40 MG VIAL. IVP ONE (14:00)
[2020-05-28] MEDS ORDERED: MAG HYDROX/AL HYDROX/SIMETH 30 ML ORAL.SUSP PO PRN (14:00)
[2020-05-28] MEDS ORDERED: ONDANSETRON PF 4 MG/2 ML VIAL. IVP PRN (17:00)
[2020-05-28 17:50] LABS: HEMATOCRIT 27.3 % (39.0-53.0); HEMOGLOBIN 9.1 g/dL (13.0-17.5); RED BLOOD COUNT 2.6 x10^6/uL (4.30-5.70); RED CELL DISTRIBUTION WIDTH 20.6 % (11.5-14.5); WHITE BLOOD COUNT 5.3 x10^3/uL (4.0-11.0)
[2020-05-28 17:53] LABS: CALCIUM 8.7 mg/dL (8.5-10.1); CREATININE 0.9 mg/dL (0.7-1.3); POTASSIUM 4.1 mmol/L (3.5-5.1)
[2020-05-28 18:00] LABS: ALBUMIN 2.7 g/dL (3.4-5.0); ALBUMIN/GLOBULIN RATIO 0.7 (1.0-1.7); TOTAL BILIRUBIN 0.5 mg/dL (0.2-1.0); TOTAL PROTEIN 6.6 g/dL (6.4-8.2)
--- NOTE | 2020-05-28 18:15 | RAD ---
Exam: CT of abdomen and pelvis without contrast INDICATION: Abdominal pain, constipation TECHNIQUE: Sequential axial images through the abdomen and pelvis obtained without IV contrast. Sagit arturo and coronal reformatted images were reconstructed from the axial data and reviewed. Comparisons: 05/26/2020 FINDINGS: Heart size is normal. No pericardial. Strandy opacities at dependent portion lungs likely representin g atelectasis pleural effusion. Evaluation of solid organs is limited secondary to noncontrast technique. Liver, spleen, pancreas and adrenals are unremarkable. Gallbladder is distended with gallstones. Ther e is a small amount of adjacent fat stranding. No perinephric inflammation or hydronephrosis. No renal or ureteral calculi are identified. Bladder is decompressed not well evaluated. Prostate is not enlarged. There is fluid-filled distention/dilatation of the colon, particularly at the ascending colon to the hepatic flexure with adjacent fat stranding and a small amount of free fluid. Small bowel is fluid-fi lled and distended without decompressed loops of bowel are identified. Abdominal aorta has a normal course and caliber. No enlarged abdominal lymph nodes are identified. No suspicious osseous lesions or acute fractures. IMPRESSION: 1. Dilated fluid-filled ascending colon with adjacent fat stranding which is nonspecific may relate to colitis. 2. Gallbladder is distended with small amount of adjacent stranding. Correlate with symptomatology t o determine the need for further evaluation with ultrasound. Exposure: One or more of the following in the visualized dose reduction techniques were utilized for this examination: 1. Automated exposure control 2. Adjustment of the MA and/or KV according to patient size 3. Use of iterative of reconstructive technique Electronically signed by: Coby Mccloud MD (05/28/2020 6:13 PM) [facility]
--- NOTE | 2020-05-28 18:38 | PN ---
DATE: 05/28/2020 SUBJECTIVE: The patient is resting slightly propped up in bed, in no apparent respiratory distress. He is complaining of abdominal cramping. He has not had any bowel movement. His CT scan showed that he is extremely constipated. His H and H has dropped this morning to 6.9 and 20.9 and we did give him a unit of packed RBCs. His hemoglobin this afternoon went up to 9.1 and 27.7. His potassium has also improved from 2.8 to 4. OBJECTIVE: GENERAL: When I examined him this afternoon, he was somewhat pale, but not jaundiced, cyanosis, or thyromegaly. No jugular venous distention. No limb edema. VITAL SIGNS: Heart rate was 99, blood pressure was 107/74, temperature was 97.4, respiratory rate was 18, and oxygen saturation was 97%. His intake was 2400. Output was 415. HEAD, EYES, EARS, NOSE AND THROAT: Normocephalic, atraumatic. NECK: Supple. HEART: Normal first and second heart sounds. No gallop or murmur. CHEST: Clear to auscultation. No crepitation or rhonchi. ABDOMEN: Distended, soft, nontender. No guarding or rigidity. No organomegaly or tenderness. All hernial orifices intact. Bowel sounds were normal. NEUROLOGIC: He is awake, alert, responding appropriately. Cranial nerves intact. He moves upper extremities to much greater extent than lower extremities. He is mostly bedbound, chair bound. LABORATORY DATA: As of this morning, his serum sodium was 143, potassium 4, chloride 106, bicarbonate 28, anion gap of 9, BUN 37, creatinine was 0.8. His estimated GFR was 102 mL per minute. His glucose was 129, calcium was 8.5. Total bilirubin is normal. AST, ALT, and alkaline phosphatase are all elevated. Total protein 6.3, albumin was 2.5. His tox screen was essentially negative and urinalysis is essentially negative. His CT scan of the abdomen and pelvis showed that the patient has large quantity of stool present in the colon. Mild diverticulosis present. No bowel obstruction. ASSESSMENT: 1. Altered mental status that has improved. 2. Acute kidney injury with dehydration, hypokalemia and hyponatremia, improved. Acute kidney injury, improved. His creatinine came down from 1.4 to 0.9. He continued to have elevated liver enzymes, likely due to chronic alcoholic liver disease. The patient has multiple other medical problems including: A. Crohn's disease. B. Type 2 diabetes mellitus, seems to be reasonably controlled. C. Hypertension. D. Hyperlipidemia. E. Chronic obstructive pulmonary disease. F. Benign prostatic hypertrophy. PLAN: My plan is to continue with IV fluids. We will start him on Colace, MiraLax, and magnesium citrate. He also had dropped his H and H and he did receive 1 unit of packed RBCs. I will repeat all his lab work tomorrow. Meanwhile, we will continue with physical and occupational therapy. EDUARDO HARRISON MD DR: RUPAL/chance JOB#: [id number] / [id number]
[2020-05-28] MEDS: DOCUSATE SODIUM 100 MG CAPSULE PO SCH ×2 (20:29→21:00)
[2020-05-29 02:09] LABS: HEMOGLOBIN A1C 6.4 % (4.8-5.6)
[2020-05-29] MEDS ORDERED: PANTOPRAZOLE IV 40 MG VIAL. IVP SCH (07:30)
[2020-05-29] MEDS ORDERED: POLYETHYLENE GLYCOL 3350 17 GM PACKET. PO SCH (09:00)
[2020-06-03] MEDS ORDERED: ATORVASTATIN CALCIUM 10 MG TABLET. PO SCH (09:00)
== END 2020-05-28 21:00 | disposition short-term general hospital (02) | DRG 683 ==
LOC: ER 11:24 → 1 SOUTH 15:52
PROVIDERS: ADMIT Internal Medicine; ATTEND Internal Medicine
PROC: 30233N1 Transfusion of Nonautologous Red Blood Cells into Peripheral Vein, Percutaneous Approach (ICD-10-PCS; principal; 2020-05-27)
DX: N17.9 Acute kidney failure, unspecified (principal); E87.1 Hypo-osmolality and hyponatremia; E87.4 Mixed disorder of acid-base balance; F23 Brief psychotic disorder; G93.40 Encephalopathy, unspecified; K50.90 Crohn's disease, unspecified, without complications; D50.9 Iron deficiency anemia, unspecified; D53.9 Nutritional anemia, unspecified; E11.42 Type 2 diabetes mellitus with diabetic polyneuropathy; E11.65 Type 2 diabetes mellitus with hyperglycemia; E78.5 Hyperlipidemia, unspecified; E86.0 Dehydration; E87.6 Hypokalemia; F10.20 Alcohol dependence, uncomplicated; I10 Essential (primary) hypertension; J44.9 Chronic obstructive pulmonary disease, unspecified; K57.90 Diverticulosis of intestine, part unspecified, without perforation or abscess without bleeding; K59.00 Constipation, unspecified; M51.27 Other intervertebral disc displacement, lumbosacral region; N40.0 Benign prostatic hyperplasia without lower urinary tract symptoms; Z82.49 Family history of ischemic heart disease and other diseases of the circulatory system; Z87.891 Personal history of nicotine dependence; G47.33 Obstructive sleep apnea (adult) (pediatric); G89.29 Other chronic pain; Z88.8 Allergy status to other drugs, medicaments and biological substances; Z99.3 Dependence on wheelchair; Z79.4 Long term (current) use of insulin
CPT/HCPCS: 36415; 70450; 71045; 74176; 74177; 80053; 80307; 80329; 81001; 82140; 82550; 82803; 82947; 83036; 83605; 83615; 83690; 83735; 83874; 84484; 85025; 85027; 85610; 86850; 86900; 86901; 86920; 87040; 87086; 93005; 94640; 96361; 96365; C9113; G0480; J2405; J2543; P9016; Q9967; 99285-25; J7030